=== PATIENT | male | born 1970 | race Caucasian/White ===

== ENCOUNTER 2023-04-09 15:27 | Emergency (ER) | payer OTHER, SELFPAY ==
[2023-04-09 15:30] VITALS: BP 117/79
--- NOTE | 2023-04-09 16:18 | ED.GENMED ---
History of Present Illness
General
Chief Complaint: Alcohol Problem
Source: patient
Exam Limitations: none
Time Seen by Provider: 04/09/23 15:52
Travel History
Have you had any contact with someone who has COVID-19?: No
Do you have any symptoms of coronavirus? Fever > 100 degrees, chills, cough, shortness of breath, sore throat, loss of taste or smell, muscle aches, or headache?: No
History of Present Illness
History of Present Illness:
52-year-old male presents with . Patient states he is intoxicated. He admits to regular alcohol use. He is back. He states he has a bed in rehab tomorrow in [place]. He has it all set up and his flight is scheduled. He got intoxicated
earlier today and mentions something is someone that he was thinking about hurting himself. He is denying any suicidal or homicidal thoughts currently. He expresses a desire to leave so he can pack for trip to rehab.
Phy Exam
Physical Exam
Physical Exam:
General: Well-appearing male no acute respiratory distress
HEENT: Normocephalic atraumatic
Heart: Regular rate and rhythm no murmurs
Lungs: Clear to auscultation bilaterally no wheezing
Psychiatric exam: Intoxicated denies thoughts of harming self or others. Cooperative. Slightly anxious
Scores
Withdrawal Assessment of Alcohol
Withdrawal Assessment Completed?: No
Course
Orders/Labs/Results
Orders:
Orders
04/09/23 16:16
Crisis Consult Urgent
Reason for Consult: si
Vital Signs
Initial and Last Documented VS:
Initial Vital Signs
Temp Pulse Resp BP Pulse Ox
97.9 F 87 18 117/79 94
04/09/23 15:30 04/09/23 15:30 04/09/23 15:30 04/09/23 15:30 04/09/23 15:30
Last Documented Vital Signs
Temp Pulse Resp BP Pulse Ox
97.9 F 87 18 117/79 94
04/09/23 15:30 04/09/23 15:30 04/09/23 15:30 04/09/23 15:30 04/09/23 15:30
MDM/Problems Addressed
Differential Diagnosis Includes:
Acute alcohol intoxication. No current thoughts of harming self or others. Crisis consult placed. Patient does have facility scheduled for tomorrow from rehab. I spoke with his privately who is comfortable taking him home.
*Critical Care Note
Total Time (30-74mins, 75-104mins- exclusive of procedures): Not Applicable
Update Note
Update Note:
Patient was becoming more agitated but not violent. He is expressing his desire to leave. He is not here on 0302 he is denying thoughts of harming self or others. He is able to walk. He is with his . His is comfortable taking him home.
I spoke with [facility] which is the facility in [place] he is attending tomorrow for rehab. They are on board as well. Patient did walk himself out of the ER prior to receiving any other papers or instructions
ED Attending Note
-
Portions of this chart may have been created with voice recognition software.� Occasional wrong word or��sound alike� substitutions may have occurred due to the inherent limitations of voice recognition software.
Discharge Plan
Departure
Patient Disposition: Home (Routine Discharge)
Date of Disposition: 04/09/23
Time of Disposition: 16:33
Patient with high blood pressure during this ER visit?: No
Discharge Problem:
Alcohol abuse
Instructions: Alcohol Use Disorder (DC)
Activity Restrictions/Additional Instructions:
Please seek further treatment as planned at rehab facility. Return if needed otherwise
Interventions
Interventions:
ED- Neurological Assessment Last Done: 04/09/23 16:18
ED-Psychological Assessment Last Done: 04/09/23 16:18
== END 2023-04-09 16:43 | disposition home or self-care (01) ==
LOC: EMR 15:27
PROVIDERS: EMERGENCY PHYSICIAN Emergency Medicine
DX: F10.129 Alcohol abuse with intoxication, unspecified (principal)
CPT/HCPCS: 99282

== ENCOUNTER 2023-10-07 02:11 | Emergency (ER) | payer OTHER, SELFPAY ==
[2023-10-07 02:15] VITALS: BP 131/83
--- NOTE | 2023-10-07 02:50 | ED.GENMED ---
History of Present Illness
<MALISSA Hawley - Last Filed: 10/07/23 04:27>
General
Chief Complaint: Skin Problem
Time Seen by Provider: 10/07/23 02:36
History of Present Illness
History of Present Illness:
Pt is a 38 y/o male with PMHx of migraines, anxiety, depression, PTSD, and alcohol abuse presenting with worsening rash on his legs x1 week. He states it started with a small, pruritic patch on his ankle 1 week ago. He states he then had a thin
linear line up his left calf that was pruritic. He states it continued to worsen so [facility] and they gave him prednisone. He states the rash continues to worsen, stating the original linear line has gotten longer and wider, also
noting multiple other areas on both legs. He states he went to urgent care today and they gave him a shot of Rocephin. He states tonight his left leg was swelling, itching, and burning and he could not sleep so he came here. He states he has also
been experiencing headaches over the past week. He states he has a history of migraines but this feels different. He states he gets the headache daily across his forehead and he has been taking Advil which alleviates his sx. He states he also felt
feverish last night he he took Advil which alleviated the symptoms. He states he was at his daughters soccer game the day before symptoms started but states he does not remember getting bit. He states he has not spent any other time outdoors. He
denies any known trauma to the area. He denies any recent travel. He denies any vision changes, cough, SOB, chest pain, abdominal pain, nausea, diarrhea, urinary symptoms.
<Pedro Shaffer DO - Last Filed: 10/07/23 04:51>
General
Source: patient
Exam Limitations: none
Nursing documentation reviewed up to this point in time: agreed with
Phy Exam
<MALISSA Hawley - Last Filed: 10/07/23 04:27>
Physical Exam
Physical Exam:
GENERAL: Alert , in no apparent distress
EYE: pupils equal and reactive
Throat: Airway intact, no exudates
NECK: Supple, no significant adenopathy.
CARDIAC: Regular rate and rhythm .
LUNGS: Clear breath sounds bilaterally, no acute respiratory distress, no wheezes/rales/rhonchi
ABDOMEN: Soft, nondistended, nontender, no cvat
NEUROLOGICAL: Alert and oriented, no focal neuro deficits
SKIN: Multiple linear, raised, erythematous, scaling patches on multiple areas of both lower extremities.
MUSCULOSKELETAL: No edema, well perfused.
PSYCH: Normal and appropriate interaction.
Course
<Nate Santamaria AJAY - Last Filed: 10/07/23 04:27>
Orders/Labs/Results
Orders:
Orders
10/07/23 04:26
Complete Blood Count/With Diff Urgent
10/07/23 04:42
Prednisone [Deltasone] 50 mg PO NOW STA
Abnormal Lab Results
10/07/23
04:26
WBC 13.8 H 10^3/uL
(4.8-10.8)
Absolute Neuts (auto) 11.8 H 10^3/uL
(1.4-6.5)
Neutrophils % 85.6 H %
(42.2-75.2)
Lymphocytes % 11.0 L %
(20.5-51.1)
10/07/23 04:26
Vital Signs
Initial and Last Documented VS:
Initial Vital Signs
Temp Pulse Resp BP Pulse Ox
98.0 F 69 20 131/83 97
10/07/23 02:15 10/07/23 02:15 10/07/23 02:15 10/07/23 02:15 10/07/23 02:15
Last Documented Vital Signs
Temp Pulse Resp BP Pulse Ox
98.0 F 69 20 131/83 97
10/07/23 02:15 10/07/23 02:15 10/07/23 02:15 10/07/23 02:15 10/07/23 02:15
<Pedro Shaffer, DO - Last Filed: 10/07/23 04:51>
Orders/Labs/Results
Orders:
Orders
10/07/23 04:26
Complete Blood Count/With Diff Urgent
10/07/23 04:42
Prednisone [Deltasone] 50 mg PO NOW STA
Abnormal Lab Results
10/07/23
04:26
WBC 13.8 H 10^3/uL
(4.8-10.8)
Absolute Neuts (auto) 11.8 H 10^3/uL
(1.4-6.5)
Neutrophils % 85.6 H %
(42.2-75.2)
Lymphocytes % 11.0 L %
(20.5-51.1)
10/07/23 04:26
Vital Signs
Initial and Last Documented VS:
Initial Vital Signs
Temp Pulse Resp BP Pulse Ox
98.0 F 69 20 131/83 97
10/07/23 02:15 10/07/23 02:15 10/07/23 02:15 10/07/23 02:15 10/07/23 02:15
Last Documented Vital Signs
Temp Pulse Resp BP Pulse Ox
98.0 F 69 20 131/83 97
10/07/23 02:15 10/07/23 02:15 10/07/23 02:15 10/07/23 02:15 10/07/23 02:15
<Pedro Shaffer, DO - Last Filed: 10/07/23 04:51>
MDM/Problems Addressed
Differential Diagnosis Includes:
TEN, cellulitis, dermatitis
MDM/Problems Addressed:
53-year-old male with dermatitis, doubt cellulitis. Will continue treatment for possible secondary cellulitis. Switch methylprednisone to prednisone taper. Follow-up with primary care, dermatology if necessary. Do not suspect TEN and or
necrotizing fasciitis.
<MALISSA Hawley - Last Filed: 10/07/23 04:27>
*Pulse Oximetry
Patient hypoxic: no
*EKG
Interpreted by ED Provider?: NA
*Motion Graphics Artist Interpretation
Rate: Motion Graphics Artist- N/A
*Critical Care Note
Total Time (30-74mins, 75-104mins- exclusive of procedures): Not Applicable
<Pedro Shaffer DO - Last Filed: 10/07/23 04:51>
Data Reviewed
Further Testing Considered But Not Given:
X-ray and ultrasound not indicated
<Pedro Shaffer DO - Last Filed: 10/07/23 04:51>
Patient Management
Social determinants of health affecting care: Living situation and Strong social support
Escalation/DeEscalation of care consider admission/obs:
Admit not indicated
ED Attending Note
<MALISSA Hawley - Last Filed: 10/07/23 04:27>
-
Portions of this chart may have been created with voice recognition software.� Occasional wrong word or��sound alike� substitutions may have occurred due to the inherent limitations of voice recognition software.
<Pedro Shaffer DO - Last Filed: 10/07/23 04:51>
ED Attending Note
Patient seen and examined by attending physician: Yes
I performed a history and physical exam of patient and discussed management with resident, I reviewed resident's note and agree with documented findings and plan of care.: Yes
ED Attending Note:
I have reviewed and agree with history and treatment plan by Nate Santamaria. My exam revealed streaking erythematous rash, without appearance of cellulitis or lymphangitis. Stable for discharge. Keflex, prednisone and Benadryl.
Discharge Plan
Departure
Patient Disposition: Home (Routine Discharge)
Date of Disposition: 10/07/23
Time of Disposition: 04:49
Patient with high blood pressure during this ER visit?: Yes
Condition: Good
Discharge Problem:
Dermatitis
Instructions: Skin Rash (DC), Dermatitis ( Contact ), BLOOD PRESSURE
Prescriptions:
New
prednisone 10 mg Tablet
See Rx Instructions .ROUTE .COMPLEX Qty: 45 0RF
Rx Instructions:
Take By Mouth:
50 mg daily x3 days, 40 mg daily x3 days,
30 mg daily x3 days, 20 mg daily x3 days,
10 mg daily x3 days
Referrals:
Becki Bravo, DO [Active] - Call in 1-3 days for appt
Interventions
Interventions:
*Risk Screen - Suicide Last Done: 10/07/23 02:15
*General Assessment Last Done: 10/07/23 02:15
*Neglect/Abuse Screening Last Done: 10/07/23 02:15
ED- Fall Risk Assessment Last Done: 10/07/23 02:15
*ED COVID-19 Vaccine History Last Done: 10/07/23 02:15
ED-Skin Assessment Last Done: 10/07/23 02:45
Discharge Date and Time
Print Language: MALDIVIAN
[2023-10-07 04:39] LABS: % Basophils 0.1 % (0-2); % Eosinophils 0.2 % (0-6); % Immature Granulocytes 0.3 % (0-0.5); % Monocytes 2.8 % (1.7-9.3); % Neutrophils 85.6 % (42.2-75.2); Absolute Lymphocytes 1.5 10^3/uL (1.2-3.4); Absolute Monocytes 0.4 10^3/uL (0.1-0.6); Absolute Neutrophils 11.8 10^3/uL (1.4-6.5); Hematocrit 43.2 % (39.0-52.0); Hemoglobin 14.8 g/dL (13.0-18.0); Mean Corp Hgb Conc. 34.3 g/dL (33.0-37.0); Mean Corpuscular Hgb 29.9 pg (27.0-31.0); Mean Corpuscular Volume 87.3 fL (80.0-94.0); Mean Platelet Volume 9.7 fL (7.4-10.4); Nucleated Red Blood Cells % 0 % (-); Platelet Count 253 10^3/uL (130-400); Red Blood Cell Count 4.95 10^6/uL (4.70-6.10); White Blood Cell Count 13.8 10^3/uL (4.8-10.8)
[2023-10-07] MEDS: DELTASONE 50 MG PO (04:51)
== END 2023-10-07 05:02 | disposition home or self-care (01) ==
LOC: EMR 02:11
PROVIDERS: EMERGENCY PHYSICIAN Emergency Medicine
DX: L30.9 Dermatitis, unspecified (principal)
CPT/HCPCS: 99283; 85025